=== PATIENT | female | born 1995 | race African-American/Black ===

== ENCOUNTER → 2018-12-22 | Outpatient (CLI) | payer OTHER ==
[2018-12-22 18:55] LABS: ALT 12 U/L (8-44); AST 23 U/L (13-35); African American GFR (CKD) 121.3 (60.0-200.0); Albumin/Globulin Ratio 1.83 (1.60-3.17); Alkaline Phosphatase 46 U/L (41-126); BUN/Creat Ratio 13.75 Ratio (12.00-20.00); Calcium 9.7 mg/dL (8.7-10.3); Chloride 108 mmol/L (96-109); Chol/HDL Ratio 1.96; Cholesterol 153 mg/dL (0-200); Globulin 2.4 g/dL (1.6-3.3); Glucose 79 mg/dL (70-110); Potassium 4.6 mmol/L (3.5-5.5); Sodium 144 mmol/L (135-145); Total Bilirubin 1.8 mg/dL (0.2-1.2); Total Protein 6.8 g/dL (6.2-8.2); Triglycerides <50.0 mg/dL (0.0-149.0)
== END | disposition home or self-care (01) ==
LOC: LABWHC1 13:17
DX: Z00.00 Encounter for general adult medical examination without abnormal findings (principal)
CPT/HCPCS: 36415; 80053; 80061; 84443

== ENCOUNTER 2022-02-05 01:31 | Emergency (ER) | payer OTHER ==
[2022-02-05] MEDS ORDERED: LIDOCAINE VISCOUS 2% 15 ML CUP MUCOUS MEM ONE (01:53)
[2022-02-05 01:54] VITALS: BP 107/77; PULSE 80; RESP 18; TEMP 98
[2022-02-05] MEDS ORDERED: HYDROcodone/APAP 5-325MG 1 EACH TAB PO STA (03:11)
[2022-02-05] MEDS ORDERED: ACET/COD 300 MG/30 MG STARTER PACK 6 TAB BTL PO STA (03:24)
--- NOTE | 2022-02-05 03:37 | ED ---
ENT HPI - General Chief complaint: ENT Stated complaint: tongue piercing injury Time Seen by Provider: 02/05/22 01:53 Source: patient, RN notes reviewed Mode of arrival: ambulatory Limitations: no limitations - History of Present Illness Initial comments: This is a 26-year-old female who presents to the emergency department for a tongue injury. She caught her tongue piercing on her braces, and felt a "ripping" sensation to the tongue. She is now having difficulty moving the tongue and opening her mouth due to the pain. Return precautions reviewed in depth, the patient is instructed to return to the emergency department with any new, worsening, or concerning symptoms. Patient verbalized understanding. This case was discussed in detail with the attending ED physician. Presentation, findings, and treatment plan discussed in detail as well. MD complaint: other (tongue pain) - Related Data Previous Rx's Medication Instructions Recorded lidocaine HCL [Lidocaine HCl 10 ml MM DIRECTED PRN #200 ml 02/05/22 Viscous] Allergies Allergy/AdvReac Type Severity Reaction Status Date / Time No Known Allergies Allergy Verified 02/05/22 01:53 Review of Systems ROS Statement: Those systems with pertinent positive or pertinent negative responses have been documented in the HPI. ROS Other: All systems not noted in ROS Statement are negative. Past Medical History Past Medical History: No Reported History History of Any Multi-Drug Resistant Organisms: None Reported Past Surgical History: No Surgical Hx Reported Past Psychological History: No Psychological Hx Reported Smoking Status: Never smoker Past Alcohol Use History: None Reported Past Drug Use History: None Reported General Exam General appearance: alert, in no apparent distress Head exam: Present: atraumatic, normocephalic, normal inspection ENT exam: Present: other (Open wound underneath the tongue at the base near the frenulum. There is no involvement of the piercing itself. The wound does not go through the entirety of the tongue.) Respiratory exam: Present: normal lung sounds bilaterally. Absent: respiratory distress, wheezes, rales, rhonchi, stridor Cardiovascular Exam: Present: regular rate, normal rhythm, normal heart sounds. Absent: systolic murmur, diastolic murmur, rubs, gallop, clicks Neurological exam: Present: alert, oriented X3, CN II-XII intact Psychiatric exam: Present: normal affect, normal mood Skin exam: Present: warm, dry, intact, normal color. Absent: rash Course Vital Signs 02/05/22 01:46 Temperature 98 F Pulse Rate 80 Respiratory 18 Rate Blood Pressure 107/77 O2 Sat by Pulse 100 Oximetry Medical Decision Making - Medical Decision Making This is a 26-year-old female who presents to the emergency department for a tongue injury. Because the injury is in the mucus membranes and it is not through and through, no repair with sutures is required. She was given viscous lidocaine for her pain and noted some improvement in symptoms. Rx for viscious lidocaine and Tylenol #3 starter pack provided with dosing instructions reviewed. Advised that the tylenol #3 can be sedating and should be taken very sparingly. She should otherwise take Ibuprofen and Tylenol. Return precautions reviewed in depth, the patient is instructed to return to the emergency department with any new, worsening, or concerning symptoms. Patient verbalized understanding. This case was discussed in detail with the attending ED physician. Presentation, findings, and treatment plan discussed in detail as well. Disposition Clinical Impression: Tongue injury Disposition: HOME SELF-CARE Additional Instructions: Return to the emergency department with any new, worsening, or concerning symptoms. Swish and spit with the lidocaine up to 8 times daily. Do not exceed 8 doses in 24 hours. Alternate with ibuprofen and Tylenol for additional relief. You can also try saltwater rinses. Limit your intake of acidic and spicy foods until this heals. Follow up with your primary care provider in 1-2 days. Prescriptions: lidocaine HCL [Lidocaine HCl Viscous] 10 ml MM DIRECTED PRN #200 ml PRN Reason: Pain Is patient prescribed a controlled substance at d/c from ED?: No Referrals: Mala Sargent DO [Primary Care Provider] - 1-2 days
== END 2022-02-05 03:55 | disposition home or self-care (01) ==
LOC: EC 01:31
DX: S09.93XA Unspecified injury of face, initial encounter (principal); W23.1XXA Caught, crushed, jammed, or pinched between stationary objects, initial encounter
CPT/HCPCS: 99283

== ENCOUNTER 2022-11-10 15:31 | Emergency (ER) | payer OTHER ==
--- NOTE | 2022-11-10 16:26 | ED ---
General Adult HPI - General Source: patient, RN notes reviewed, old records reviewed Mode of arrival: ambulatory Limitations: no limitations <Christian Vail - Last Filed: 11/10/22 20:16> <Christian Patrick - Last Filed: 11/11/22 18:44> - General Chief complaint: Psychiatric Symptoms Stated complaint: Mental health Time Seen by Provider: 11/10/22 15:40 - History of Present Illness Initial comments: This a 27 year old female who presents emergency Department stating she's been having some fleeting thoughts about suicide. Patient states she doesn't think she would never do it but she has had some thoughts. Patient states recently she had to go to senior living for having a registered handgun. Patient states that she also has been losing a lot of jobs recently because she has no motivation to get up and so she doesn't show fourth and eventually fire. Patient states she thinks maybe her depression is contributing to her lack of motivation and her inability to hold a job. (Christian Vail) - Related Data Home Medications Medication Instructions Recorded Confirmed No Known Home Medications 11/10/22 11/10/22 Allergies Allergy/AdvReac Type Severity Reaction Status Date / Time No Known Allergies Allergy Verified 11/10/22 21:50 Review of Systems ROS Other: All systems not noted in ROS Statement are negative. <Christian Vail - Last Filed: 11/10/22 20:16> ROS Other: All systems not noted in ROS Statement are negative. <Christian Patrick - Last Filed: 11/11/22 18:44> ROS Statement: Those systems with pertinent positive or pertinent negative responses have been documented in the HPI. Past Medical History Past Medical History: No Reported History History of Any Multi-Drug Resistant Organisms: None Reported Past Surgical History: No Surgical Hx Reported Past Psychological History: No Psychological Hx Reported Smoking Status: Vaper Past Alcohol Use History: None Reported Past Drug Use History: None Reported <Christian Vail - Last Filed: 11/10/22 20:16> General Exam Limitations: no limitations <Christian Vail - Last Filed: 11/10/22 20:16> General appearance: alert, in no apparent distress Head exam: Present: atraumatic, normocephalic, normal inspection Eye exam: Present: normal appearance, PERRL, EOMI. Absent: scleral icterus, conjunctival injection, periorbital swelling ENT exam: Present: normal exam, mucous membranes moist Neck exam: Present: normal inspection. Absent: tenderness, meningismus, lymphadenopathy Respiratory exam: Present: normal lung sounds bilaterally. Absent: respiratory distress, wheezes, rales, rhonchi, stridor Cardiovascular Exam: Present: regular rate, normal rhythm, normal heart sounds. Absent: systolic murmur, diastolic murmur, rubs, gallop, clicks GI/Abdominal exam: Present: soft, normal bowel sounds. Absent: distended, tenderness, guarding, rebound, rigid Extremities exam: Present: normal inspection, full ROM, normal capillary refill. Absent: tenderness, pedal edema, joint swelling, calf tenderness Back exam: Present: normal inspection Neurological exam: Present: alert, oriented X3, CN II-XII intact Psychiatric exam: Present: normal affect, normal mood Skin exam: Present: warm, dry, intact, normal color. Absent: rash <Christian Patrick - Last Filed: 11/11/22 18:44> - General Exam Comments Initial Comments: GENERAL: Patient is well-developed and well-nourished. Patient is nontoxic and well- hydrated and is in no acute distress. ENT: Neck is soft and supple. No significant lymphadenopathy is noted. Oropharynx is clear. Moist mucous membranes. Neck has full range of motion without eliciting any pain. EYES: The sclera were anicteric and conjunctiva were pink and moist. Extraocular movements were intact and pupils were equal round and reactive to light. Eyelids were unremarkable. PULMONARY: Unlabored respirations. Good breath sounds bilaterally. No audible rales rhonchi or wheezing was noted. CARDIOVASCULAR: There is a regular rate and rhythm without any murmurs gallops or rubs. ABDOMEN: Soft and nontender with normal bowel sounds. SKIN: Skin is clear with no lesions or rashes and otherwise unremarkable. NEUROLOGIC: Patient is alert and oriented x3. Cranial nerves II through XII are grossly intact. Motor and sensory are also intact. Normal speech, volume and content. Symmetrical smile. MUSCULOSKELETAL: Normal extremities with adequate strength and full range of motion. LYMPHATICS: No significant lymphadenopathy is noted PSYCHIATRIC: Patient states she's having lack of motivation. Patient states she has had fleeting thoughts of suicide (Christian Vail) Course <Christian Patrick - Last Filed: 11/11/22 18:44> Vital Signs 11/10/22 11/11/22 11/11/22 15:39 03:09 16:42 Temperature 98.3 F 98.5 F 97.9 F Pulse Rate 73 77 72 Respiratory 16 18 18 Rate Blood Pressure 125/80 98/57 100/68 O2 Sat by Pulse 94 L 90 L 100 Oximetry - Reevaluation(s) Reevaluation #1: 11/11/22 18:44 Medical records reviewed (Christian Patrick) Reevaluation #2: 11/11/22 18:44 Medical clear for psychiatric evaluation (Christian Patrick) Medical Decision Making <Christian Vail - Last Filed: 11/10/22 20:16> - Lab Data Result diagrams: 11/10/22 22:48 11/10/22 22:48 <Christian Patrick - Last Filed: 11/11/22 18:44> - Medical Decision Making Was pt. sent in by a medical professional or institution (, PA, VP SOFTWARE SUPPORT, urgent care, hospital, or longterm...) When possible be specific @ -Patient was sent in from senior living Did you speak to anyone other than the patient for history (EMS, parent, family, police, friend...)? What history was obtained from this source @ -[No] Did you review nursing and triage notes (agree or disagree)? Why? @ -[I reviewed and agree with nursing and triage notes] Were old charts reviewed (outside hosp., previous admission, EMS record, old EKG, old radiological studies, urgent care reports/EKG's, longterm records)? Report findings @ -[No old charts were reviewed] Differential Diagnosis (chest pain, altered mental status, abdominal pain women, abdominal pain men, vaginal bleeding, weakness, fever, dyspnea, syncope, headache, dizziness, GI bleed, back pain, seizure, CVA, palpatations, mental health, musculoskeletal)? @ -Differential Mental Health Depression, anxiety, bipolar, psychosis, schizophrenia, borderline personality, situational depression, adjustment disorder, behavioral disorder, brain tumor, malingering, substance abuse, encephalopathy, medication reaction, dementia, hypothyroidism, degenerative neurologic disorder, lupus.... This is not meant to be all-inclusive list EKG interpreted by me (3pts min.). @ -[As above] X-rays interpreted by me (1pt min.). @ -[None done] CT interpreted by me (1pt min.). @ -[None done] U/S interpreted by me (1pt. min.). @ -[None done] What testing was considered but not performed or refused? (CT, X-rays, U/S, labs)? Why? @ -[None] What meds were considered but not given or refused? Why? @ -[None] Did you discuss the management of the patient with other professionals (professionals i.e. DrMarbin, PA, VP SOFTWARE SUPPORT, lab, RT, psych nurse, social worker masters, ivory carver, teacher, community reinvestment act officer, case repairer)? Give summary @ -[No] Was smoking cessation discussed for >3mins.? @ -[No] Was critical care preformed (if so, how long)? @ -[No] Were there social determinants of health that impacted care today? How? (Homelessness, low income, unemployed, alcoholism, drug addiction, transportation, low edu. Level, literacy, decrease access to med. care, senior living, rehab)? @ -[No] Was there de-escalation of care discussed even if they declined (Discuss DNR or withdrawal of care, Hospice)? DNR status @ -[No] What co-morbidities impacted this encounter? (DM, HTN, Smoking, COPD, CAD, Cancer, CVA, ARF, Chemo, Hep., AIDS, mental health diagnosis, sleep apnea, morbid obesity)? @ -[None] Was patient admitted / discharged? Hospital course, mention meds given and route, prescriptions, significant lab abnormalities, going to OR and other pertinent info. @ -I cleared the patient medically for EPS to see. EPS states it won't be down to see the patient after 9:00. Patient will be taking care of at 9:[address] Scott (Christian Vail) 27 female will be transferred for inpatient psychiatric evaluation. Patient was seen at clinically certified by me for psychiatric inpatient evaluation and treatment (Christian Patrick) - Lab Data Lab Results 11/10/22 11/10/22 11/10/22 Range/Units 16:29 16:29 16:29 WBC (3.8-10.6) k/uL RBC (3.80-5.40) m/uL Hgb (11.4-16.0) gm/dL Hct (34.0-46.0) % MCV (80.0-100.0) fL MCH (25.0-35.0) pg MCHC (31.0-37.0) g/dL RDW (11.5-15.5) % Plt Count (150-450) k/uL MPV Neutrophils % % Lymphocytes % % Monocytes % % Eosinophils % % Basophils % % Neutrophils # (1.3-7.7) k/uL Lymphocytes # (1.0-4.8) k/uL Monocytes # (0-1.0) k/uL Eosinophils # (0-0.7) k/uL Basophils # (0-0.2) k/uL Sodium (137-145) mmol/L Potassium (3.5-5.1) mmol/L Chloride (98-107) mmol/L Carbon Dioxide (22-30) mmol/L Anion Gap mmol/L BUN (7-17) mg/dL Creatinine (0.52-1.04) mg/dL Est GFR (CKD-EPI)AfAm (>60 ml/min/1.73 sqM) Est GFR (CKD-EPI)NonAf (>60 ml/min/1.73 sqM) Glucose (74-99) mg/dL Calcium (8.4-10.2) mg/dL Total Bilirubin (0.2-1.3) mg/dL AST (14-36) U/L ALT (4-34) U/L Alkaline Phosphatase (38-126) U/L Total Protein (6.3-8.2) g/dL Albumin (3.5-5.0) g/dL Urine Color Yellow Urine Appearance Cloudy H (Clear) Urine pH 6.0 (5.0-8.0) Ur Specific [place] 1.018 (1.001-1.035) Urine Protein Trace H (Negative) Urine Glucose (UA) Negative (Negative) Urine Ketones Negative (Negative) Urine Blood Negative (Negative) Urine Nitrite Negative (Negative) Urine Bilirubin Negative (Negative) Urine Urobilinogen 2.0 (<2.0) mg/dL Ur Leukocyte Esterase Moderate H (Negative) Urine RBC 4 (0-5) /hpf Urine WBC 16 H (0-5) /hpf Ur Squamous Epith Cells 11 H (0-4) /hpf Calcium Oxalate Crystal Many H (None) /hpf Amorphous Sediment Occasional H (None) /hpf Urine Bacteria Few H (None) /hpf Hyaline Casts 23 H (0-2) /lpf Urine Mucus Many H (None) /hpf Urine HCG, Qual Not Detected (Not Detectd) Urine Opiates Screen Not Detected (NotDetected) Ur Oxycodone Screen Not Detected (NotDetected) Urine Methadone Screen Not Detected (NotDetected) Ur Propoxyphene Screen Not Detected (NotDetected) Ur Barbiturates Screen Not Detected (NotDetected) U Tricyclic Antidepress Not Detected (NotDetected) Ur Phencyclidine Scrn Not Detected (NotDetected) Ur Amphetamines Screen Not Detected (NotDetected) U Methamphetamines Scrn Not Detected (NotDetected) U Benzodiazepines Scrn Not Detected (NotDetected) Urine Cocaine Screen Not Detected (NotDetected) U Marijuana (THC) Screen Not Detected (NotDetected) Coronavirus (PCR) (Not Detectd) 11/10/22 11/10/22 11/10/22 Range/Units 22:48 22:48 22:48 WBC 4.6 (3.8-10.6) k/uL RBC 4.34 (3.80-5.40) m/uL Hgb 12.6 (11.4-16.0) gm/dL Hct 36.4 (34.0-46.0) % MCV 83.9 (80.0-100.0) fL MCH 29.1 (25.0-35.0) pg MCHC 34.7 (31.0-37.0) g/dL RDW 12.6 (11.5-15.5) % Plt Count 238 (150-450) k/uL MPV 8.6 Neutrophils % 41 % Lymphocytes % 48 % Monocytes % 7 % Eosinophils % 1 % Basophils % 0 % Neutrophils # 1.9 (1.3-7.7) k/uL Lymphocytes # 2.2 (1.0-4.8) k/uL Monocytes # 0.3 (0-1.0) k/uL Eosinophils # 0.1 (0-0.7) k/uL Basophils # 0.0 (0-0.2) k/uL Sodium 138 (137-145) mmol/L Potassium 4.3 (3.5-5.1) mmol/L Chloride 104 (98-107) mmol/L Carbon Dioxide 24 (22-30) mmol/L Anion Gap 10 mmol/L BUN 5 L (7-17) mg/dL Creatinine 0.67 (0.52-1.04) mg/dL Est GFR (CKD-EPI)AfAm >90 (>60 ml/min/1.73 sqM) Est GFR (CKD-EPI)NonAf >90 (>60 ml/min/1.73 sqM) Glucose 94 (74-99) mg/dL Calcium 9.9 (8.4-10.2) mg/dL Total Bilirubin 2.2 H (0.2-1.3) mg/dL AST 23 (14-36) U/L ALT 15 (4-34) U/L Alkaline Phosphatase 55 (38-126) U/L Total Protein 7.6 (6.3-8.2) g/dL Albumin 4.3 (3.5-5.0) g/dL Urine Color Urine Appearance (Clear) Urine pH (5.0-8.0) Ur Specific [place] (1.001-1.035) Urine Protein (Negative) Urine Glucose (UA) (Negative) Urine Ketones (Negative) Urine Blood (Negative) Urine Nitrite (Negative) Urine Bilirubin (Negative) Urine Urobilinogen (<2.0) mg/dL Ur Leukocyte Esterase (Negative) Urine RBC (0-5) /hpf Urine WBC (0-5) /hpf Ur Squamous Epith Cells (0-4) /hpf Calcium Oxalate Crystal (None) /hpf Amorphous Sediment (None) /hpf Urine Bacteria (None) /hpf Hyaline Casts (0-2) /lpf Urine Mucus (None) /hpf Urine HCG, Qual (Not Detectd) Urine Opiates Screen (NotDetected) Ur Oxycodone Screen (NotDetected) Urine Methadone Screen (NotDetected) Ur Propoxyphene Screen (NotDetected) Ur Barbiturates Screen (NotDetected) U Tricyclic Antidepress (NotDetected) Ur Phencyclidine Scrn (NotDetected) Ur Amphetamines Screen (NotDetected) U Methamphetamines Scrn (NotDetected) U Benzodiazepines Scrn (NotDetected) Urine Cocaine Screen (NotDetected) U Marijuana (THC) Screen (NotDetected) Coronavirus (PCR) Not Detected (Not Detectd) Disposition <Christian Vail - Last Filed: 11/10/22 20:16> Is patient prescribed a controlled substance at d/c from ED?: No <Christian Patrick - Last Filed: 11/11/22 18:44> Clinical Impression: Adjustment reaction of adult life, Acute anxiety, Depression, Suicidal ideation Disposition: TRANSFER TO PSYCH HOSP/UNIT Condition: Fair Referrals: Mega Coto MD [Primary Care Provider] - 1-2 days
[2022-11-10 16:57] LABS: Amphetamine Screen,Urine Not Detected (NotDetected); Barbiturate Screen,Urine Not Detected (NotDetected); Benzodiazepines Screen,Urine Not Detected (NotDetected); Cocaine Screen,Urine Not Detected (NotDetected); Methadone Screen, Urine Not Detected (NotDetected); Opiate Screen,Urine Not Detected (NotDetected); Oxycodone Screen, Urine Not Detected (NotDetected); Phencyclidine Screen,Urine Not Detected (NotDetected); Tricyclic Antidepressant,Urine Not Detected (NotDetected); Urn Cannabinoid Scrn Not Detected (NotDetected)
[2022-11-10 22:40] LABS: Amorphous Sediment,Urine Occasional /hpf; Appearance,Urine Cloudy (Clear); Bacteria,Urine Few /hpf; Bilirubin,Urine Negative (Negative); Blood,Urine Negative (Negative); Calcium Oxalate Crystals,Urine Many /hpf; Color,Urine Yellow; Glucose,Urine (UA) Negative (Negative); Hyaline Casts,Urine 23 /lpf (0-2); Ketones,Urine Negative (Negative); Leukocyte Esterase,Urine Moderate (Negative); Mucus,Urine Many /hpf; Nitrite,Urine Negative (Negative); Protein,Urine Trace (Negative); RBC,Urine 4 /hpf (0-5); Specific Gravity,Urine 1.018 (1.001-1.035); Squamous Epithelial Cell,Urine 11 /hpf (0-4); WBC,Urine 16 /hpf (0-5)
[2022-11-10 23:11] LABS: Basophils % (A) 0 %; Eosinophils # (A) 0.1 k/uL (0-0.7); Eosinophils % (A) 1 %; HCT 36.4 % (34.0-46.0); HGB 12.6 gm/dL (11.4-16.0); Lymphocytes # (A) 2.2 k/uL (1.0-4.8); Lymphocytes % (A) 48 %; MCH 29.1 pg (25.0-35.0); MCHC 34.7 g/dL (31.0-37.0); MCV 83.9 fL (80.0-100.0); Mean Platelet Volume 8.6; Monocytes # (A) 0.3 k/uL (0-1.0); Monocytes % (A) 7 %; Neutrophils # (A) 1.9 k/uL (1.3-7.7); Neutrophils % (A) 41 %; Platelet Count 238 k/uL (150-450); RBC 4.34 m/uL (3.80-5.40); RDW 12.6 % (11.5-15.5); WBC 4.6 k/uL (3.8-10.6)
[2022-11-10 23:25] LABS: ALT 15 U/L (4-34); AST 23 U/L (14-36); African American GFR (CKD) >90 (>60 ml/min/1.73 sqM); Albumin 4.3 g/dL (3.5-5.0); Alkaline Phosphatase 55 U/L (38-126); Anion Gap 10 mmol/L; Blood Urea Nitrogen 5 mg/dL (7-17); Calcium 9.9 mg/dL (8.4-10.2); Carbon Dioxide 24 mmol/L (22-30); Chloride 104 mmol/L (98-107); Glucose 94 mg/dL (74-99); Non-African American GFR(CKD) >90 (>60 ml/min/1.73 sqM); Potassium 4.3 mmol/L (3.5-5.1); Sodium 138 mmol/L (137-145); Total Bilirubin 2.2 mg/dL (0.2-1.3); Total Protein 7.6 g/dL (6.3-8.2)
[2022-11-11 06:11] VITALS: RESP 18
[2022-11-12 15:45] VITALS: BP 100/68; PULSE 72; TEMP 97.9
== END 2022-11-11 20:42 ==
LOC: EC 15:31
DX: F43.22 Adjustment disorder with anxiety (principal); F32.A Depression, unspecified; R45.851 Suicidal ideations; F17.290 Nicotine dependence, other tobacco product, uncomplicated; Z20.822 Contact with and (suspected) exposure to COVID-19
CPT/HCPCS: 36415; 80053; 80306; 81001; 81025; 82075; 85025; 87635; 99285

== ENCOUNTER → 2023-06-11 | Outpatient (CLI) | payer OTHER ==
[2023-06-11 18:31] LABS: HCT 35.6 % (37.2-46.3); HGB 12.4 g/dL (12.0-15.0); MCH 28.4 pg (27.0-32.0); MCHC 34.8 g/dL (32.0-37.0); MCV 81.7 FL (80.0-97.0); Mean Platelet Volume 12.2 FL (9.5-12.2); NRBC Per 100 WBC 0 X 10*3/uL (0.00-0.01); Platelet Count 244 X 10*3/uL (140-440); RBC 4.36 X 10*6/uL (4.10-5.20); RDW 13.3 % (11.5-14.5); WBC 4.78 X 10*3/uL (4.50-10.00)
[2023-06-11 18:47] LABS: ALT 9 U/L (8-44); AST 15 U/L (13-35); Albumin 4.5 g/dL (3.8-4.9); Albumin/Globulin Ratio 1.55 Ratio (1.60-3.17); Alkaline Phosphatase 40 U/L (41-126); BUN/Creat Ratio 17.71 Ratio (12.00-20.00); Blood Urea Nitrogen 12.4 mg/dL (9.0-27.0); Calcium 10.2 mg/dL (8.7-10.3); Carbon Dioxide 21.4 mmol/L (21.6-31.8); Chloride 106 mmol/L (96-109); Globulin 2.9 g/dL (1.6-3.3); Glucose 91 mg/dL (70-110); Potassium 4.4 mmol/L (3.5-5.5); Sodium 140 mmol/L (135-145); Total Protein 7.4 g/dL (6.2-8.2)
[2023-06-11 18:51] LABS: Hepatitis A Antibody IgM Nonreactive (Nonreactive); Hepatitis B Core IgM Nonreactive (Nonreactive); Hepatitis B Surface Antigen Nonreactive (Nonreactive); Hepatitis C IgG Antibody Nonreactive (Nonreactive)
[2023-06-11 20:21] LABS: HSV I IgG Interp POSITIVE; HSV II IgG Interp Negative (Negative)
[2023-06-11 21:08] LABS: HIV 2 AB Non-Reactive (Non-Reactive); HIV AB P24 Non-Reactive (Non-Reactive); HIV P24 AG Non-Reactive (Non-Reactive)
== END | disposition home or self-care (01) ==
LOC: LABWHC1 12:10
PROVIDERS: ATTEND Physician Assistant Medical
DX: Z30.41 Encounter for surveillance of contraceptive pills (principal); Z76.89 Persons encountering health services in other specified circumstances; N89.8 Other specified noninflammatory disorders of vagina; Z97.5 Presence of (intrauterine) contraceptive device
CPT/HCPCS: 36415; 80053; 80074; 85027; 86695; 86696; 86780; 87390

== ENCOUNTER 2023-11-04 23:56 | Emergency (ER) | payer OTHER ==
[2023-11-05 00:04] VITALS: RESP 18; TEMP 97.9
--- NOTE | 2023-11-05 00:22 | ED ---
Female Urogenital HPI - General Chief complaint: Urogenital Stated complaint: Vaginal Pain Time Seen by Provider: 11/05/23 00:06 Source: patient, RN notes reviewed Mode of arrival: ambulatory Limitations: no limitations - History of Present Illness Initial comments: This is a 28-year-old female who presents to the emergency department for pelvic pain. States that over the last week she has had burning with urination, pressure/fullness in her bladder and possible blood in her urine. Denies any vaginal bleeding. Reports a history of both UTIs and STIs and states that either one is possible. Denies any fevers/chills, nausea/vomiting, or pain in her back. MD Complaint: dysuria, pelvic pain - Related Data Previous Rx's Medication Instructions Recorded Phenazopyridine [Pyridium] 200 mg PO TID PRN #9 tablet 11/05/23 Sulfamethox-Tmp 800-160Mg [Bactrim 1 tab PO Q12HR 7 Days #14 tab 11/05/23 DS 800-160 mg] Allergies Allergy/AdvReac Type Severity Reaction Status Date / Time No Known Allergies Allergy Verified 11/10/22 21:50 Review of Systems ROS Statement: Those systems with pertinent positive or pertinent negative responses have been documented in the HPI. ROS Other: All systems not noted in ROS Statement are negative. Past Medical History Past Medical History: No Reported History History of Any Multi-Drug Resistant Organisms: None Reported Past Surgical History: No Surgical Hx Reported Past Psychological History: No Psychological Hx Reported Smoking Status: Vaper Past Alcohol Use History: Occasional Past Drug Use History: Marijuana General Exam Limitations: no limitations General appearance: alert, in no apparent distress Head exam: Present: atraumatic, normocephalic, normal inspection Respiratory exam: Present: normal lung sounds bilaterally. Absent: respiratory distress, wheezes, rales, rhonchi, stridor Cardiovascular Exam: Present: regular rate, normal rhythm, normal heart sounds. Absent: systolic murmur, diastolic murmur, rubs, gallop, clicks GI/Abdominal exam: Present: soft, normal bowel sounds. Absent: distended, tenderness, guarding, rebound, rigid Back exam: Absent: CVA tenderness (R), CVA tenderness (L) Neurological exam: Present: alert, oriented X3, CN II-XII intact Psychiatric exam: Present: normal affect, normal mood Skin exam: Present: warm, dry, intact, normal color. Absent: rash Course Vital Signs 11/05/23 11/05/23 00:01 03:33 Temperature 97.9 F Pulse Rate 98 85 Respiratory 18 18 Rate Blood Pressure 123/75 113/69 O2 Sat by Pulse 100 100 Oximetry Medical Decision Making - Medical Decision Making This is a 28 year old female who presents to the emergency department for urinary symptoms. Was pt. sent in by a medical professional or institution? @ -No Did you speak to anyone other than the patient for history? @ -No Did you review nursing and triage notes? @ -Yes, and I agree, it is accurate with regards to the patient's symptoms. Were old charts reviewed? @ -No Differential Diagnosis? @ -Differential Urinary Symptoms: UTI, STI, kidney stone, this is not meant to be an all-inclusive list. EKG interpreted by me (3pts min.)? @ -Not obtained X-rays interpreted by me (1pt min.)? @ -Not obtained CT interpreted by me (1pt min.)? @ -Not obtained U/S interpreted by me (1pt. min.)? @ -Not obtained What testing was considered but not performed? (CT, X-rays, U/S, labs)? Why? @ -None What meds were considered but not given? Why? @ -None Did you discuss the management of the patient with other professionals? @ -No Did you reconcile home meds? @ -No Was smoking cessation discussed for >3mins.? @ -No Was critical care preformed (if so, how long)? @ -No Were there social determinants of health that impacted care today? How? (Homelessness, low income, unemployed, alcoholism, drug addiction, transportation, low edu. Level, literacy, decrease access to med. care, shelter, rehab)? @ -No Was there de-escalation of care discussed even if they declined? (Discuss DNR or withdrawal of care, Hospice)? @ -No What co-morbidities impacted this encounter? (DM, HTN, Smoking, COPD, CAD, Cancer, CVA, Hep., AIDS, mental health diagnosis, sleep apnea, morbid obesity)? @ -None Was patient admitted / discharged? @ -Discharged. Urinalysis consistent with infection. Urine sent for culture. Gonorrhea and Chlamydia testing ordered with results pending at the time of discharge. 1 g of IM Rocephin administered. She was also given 2 g of Flagyl and 1 g of azithromycin in the event there was any STD exposure. A prescription for Bactrim was provided for the UTI. Pyridium prescribed for dysuria. Patient discharged home in stable condition. Case discussed with ED attending Dr. Patrick. Return precautions reviewed in depth, the patient is instructed to return to the emergency department with any new, worsening, or concerning symptoms. Patient verbalized understanding. Undiagnosed new problem with uncertain prognosis? @ -None Drug Therapy requiring intensive monitoring for toxicity (Heparin, Nitro, Insulin, Cardizem)? @ -None Were any procedures done? @ -None Diagnosis/symptom? @ -UTI, possible STI exposure Acute, or Chronic, or Acute on Chronic? @ -Acute Uncomplicated (without systemic symptoms) or Complicated (systemic symptoms)? @ -Uncomplicated Side effects of treatment? @ -None Exacerbation, Progression, or Severe Exacerbation] @ -Not applicable Poses a threat to life or bodily function? @ -No - Lab Data Lab Results 11/05/23 11/05/23 Range/Units 00:11 00:11 Urine Color Yellow Urine Appearance Turbid H (Clear) Urine pH 6.5 (5.0-8.0) Ur Specific [place] 1.021 (1.001-1.035) Urine Protein 3+ H (Negative) Urine Glucose (UA) Negative (Negative) Urine Ketones Negative (Negative) Urine Blood Large H (Negative) Urine Nitrite Negative (Negative) Urine Bilirubin Negative (Negative) Urine Urobilinogen 12.0 (<2.0) mg/dL Ur Leukocyte Esterase Large H (Negative) Urine RBC >182 H (0-5) /hpf Urine WBC >182 H (0-5) /hpf Urine WBC Clumps Many H (None) /hpf Urine Bacteria Few H (None) /hpf Urine Mucus Many H (None) /hpf Urine HCG, Qual Not Detected (Not Detectd) Disposition Clinical Impression: Urinary tract infection, Possible exposure to STI Disposition: HOME SELF-CARE Condition: Stable Instructions (If sedation given, give patient instructions): Urinary Tract Infection in Women (ED) Additional Instructions: Return to the emergency department with any new, worsening, or concerning symptoms. Take the antibiotic as prescribed for 7 days. You can take the Pyridium up to 3 times daily as needed for burning with urination. Be aware that this may turn your urine orange. Alternate with ibuprofen and Tylenol as needed for pain relief. Follow up with your primary care provider in 1-2 days. Prescriptions: Sulfamethox-Tmp 800-160Mg [Bactrim DS 800-160 mg] 1 tab PO Q12HR 7 Days #14 tab Phenazopyridine [Pyridium] 200 mg PO TID PRN #9 tablet PRN Reason: Pain Is patient prescribed a controlled substance at d/c from ED?: No Referrals: Nonstaff,Physician [Primary Care Provider] - 1-2 days Time of Disposition: 03:19
[2023-11-05] MEDS: IBUPROFEN 800 MG TAB PO STA (00:27)
[2023-11-05] MEDS: HYDROcodone/APAP 7.5-325MG 1 EACH TAB PO ONE (00:28)
[2023-11-05 03:07] LABS: Appearance,Urine Turbid (Clear); Bacteria,Urine Few /hpf; Bilirubin,Urine Negative (Negative); Blood,Urine Large (Negative); Color,Urine Yellow; Glucose,Urine (UA) Negative (Negative); Ketones,Urine Negative (Negative); Leukocyte Esterase,Urine Large (Negative); Mucus,Urine Many /hpf; Nitrite,Urine Negative (Negative); PH, Urine 6.5 (5.0-8.0); Protein,Urine 3+ (Negative); RBC,Urine >182 /hpf (0-5); Specific Gravity,Urine 1.021 (1.001-1.035); WBC,Urine >182 /hpf (0-5)
[2023-11-05] MEDS: metroNIDAZOLE 500 MG TAB PO STA (03:23)
[2023-11-05] MEDS: ACET/COD 300 MG/30 MG STARTER PACK 6 TAB BTL PO STA (03:24)
[2023-11-05] MEDS: cefTRIAXone 1,000 MG VIAL (IM USE) IM STA (03:24)
[2023-11-05] MEDS: AZITHROMYCIN 500 MG TAB PO STA (03:24)
[2023-11-05] MEDS: IBUPROFEN 600 MG STARTER PACK 4 TAB BTL PO STA (03:25)
[2023-11-05 03:35] VITALS: BP 113/69; PULSE 85
[2023-11-14 07:10] LABS: C. trachomatis,PCR Negative (Negative); N. gonorrhoeae,PCR Negative (Negative)
== END 2023-11-05 03:33 | disposition home or self-care (01) ==
LOC: EC 23:56
CPT/HCPCS: 81001; 81025; 87077; 87086; 87186; 87491; 87591; 96372; 99284

== ENCOUNTER 2024-04-17 15:38 | Emergency (ER) | payer OTHER ==
--- NOTE | 2024-04-17 16:26 | ED ---
Female Urogenital HPI - General Source: patient, RN notes reviewed Mode of arrival: ambulatory Limitations: no limitations <Terri Clemente - Last Filed: 04/17/24 16:25> <Walter Mckinnon - Last Filed: 04/18/24 23:11> - General Stated complaint: pain when urinating Time Seen by Provider: 04/17/24 16:25 - History of Present Illness Initial comments: Quick note: 28-year-old female presented to the ER for evaluation of dysuria. Patient noticed yesterday she started to have a pressure sensation with urinating. She is concerned she has another UTI. No back pain or fevers. (Terri Clemente) 28-year-old female presenting with chief complaint of dysuria. Patient states she has had dysuria and increased pressure with urinating for a few days but it got much worse last night. She is worried that she has a UTI. She is not having any flank pain, fever, nausea, vomiting, abdominal pain. (Josue Mckinnon) - Related Data Previous Rx's Medication Instructions Recorded Phenazopyridine [Pyridium] 200 mg PO TID PRN #9 tablet 11/05/23 Sulfamethox-Tmp 800-160Mg [Bactrim 1 tab PO Q12HR 7 Days #14 tab 11/05/23 DS 800-160 mg] Cephalexin [Keflex] 500 mg PO Q12HR 7 Days #14 cap 04/17/24 Allergies Allergy/AdvReac Type Severity Reaction Status Date / Time No Known Allergies Allergy Verified 04/17/24 16:38 Review of Systems ROS Other: All systems not noted in ROS Statement are negative. <Terri Clemente - Last Filed: 04/17/24 16:25> ROS Other: All systems not noted in ROS Statement are negative. <Walter Mckinnon - Last Filed: 04/18/24 23:11> ROS Statement: Those systems with pertinent positive or pertinent negative responses have been documented in the HPI. Past Medical History Past Medical History: No Reported History History of Any Multi-Drug Resistant Organisms: None Reported Past Surgical History: No Surgical Hx Reported Past Psychological History: No Psychological Hx Reported Smoking Status: Vaper Past Alcohol Use History: Occasional Past Drug Use History: Marijuana <Terri Clemente - Last Filed: 04/17/24 16:25> General Exam <Terri Clemente - Last Filed: 04/17/24 16:25> Limitations: no limitations General appearance: alert, in no apparent distress Head exam: Present: atraumatic, normocephalic, normal inspection Eye exam: Present: normal appearance, EOMI Neck exam: Present: normal inspection. Absent: meningismus Respiratory exam: Absent: respiratory distress Cardiovascular Exam: Present: regular rate GI/Abdominal exam: Absent: distended Neurological exam: Present: alert, oriented X3 Psychiatric exam: Present: normal affect, normal mood Skin exam: Present: warm, dry, normal color <Walter Mckinnon - Last Filed: 04/18/24 23:11> - General Exam Comments Initial Comments: Visual Physical Exam Vital signs reviewed General: Well-appearing, nontoxic, no acute distress. Head: Normocephalic, atraumatic Eyes: PERRLA, EOMI ENT: Airway patent Chest: Nonlabored breathing Skin: No visual rash, normal skin tone Neuro: Alert and oriented 3 Musculoskeletal: No gross abnormalities (Terri Clemente) Course Vital Signs 04/17/24 04/17/24 16:35 19:55 Temperature 98.0 F Pulse Rate 72 65 Respiratory 18 16 Rate Blood Pressure 108/75 116/79 O2 Sat by Pulse 100 100 Oximetry Medical Decision Making <Terri Clemente - Last Filed: 04/17/24 16:25> <Walter Mckinnon - Last Filed: 04/18/24 23:11> - Medical Decision Making I performed the quick note portion of this chart. Electronically signed by Terri Clemente PA-C (Terri Clemente) Was pt. sent in by a medical professional or institution ([facility], OLERICULTURIST, urgent care, hospital, or [place] [facility] care facility...) When possible be specific @ -No Did you speak to anyone other than the patient for history (EMS, parent, family, police, friend...)? What history was obtained from this source @ -No Did you review nursing and triage notes (agree or disagree)? Why? @ -I reviewed and agree with nursing and triage notes Were old charts reviewed (outside hosp., previous admission, EMS record, old EKG, old radiological studies, urgent care reports/EKG's, [place] health [facility] facility records)? Report findings @ -No old charts were reviewed Differential Diagnosis (chest pain, altered mental status, abdominal pain women, abdominal pain men, vaginal bleeding, weakness, fever, dyspnea, syncope, headache, dizziness, GI bleed, back pain, seizure, CVA, palpatations, mental health, musculoskeletal)? @ -Differential includes UTI, kidney stone, pyelonephritis, not an all- inclusive list EKG interpreted by me (3pts min.). @ -As above X-rays interpreted by me (1pt min.). @ -None done CT interpreted by me (1pt min.). @ -None done U/S interpreted by me (1pt. min.). @ -None done What testing was considered but not performed or refused? (CT, X-rays, U/S, labs)? Why? @ -None What meds were considered but not given or refused? Why? @ -None Did you discuss the management of the patient with other professionals (professionals i.e. , PA, OLERICULTURIST, lab, RT, psych nurse, rn social services, occupational health nurse supervisor, teacher, radiological defense officer, registered nurse hh case manager)? Give summary @ -No Was smoking cessation discussed for >3mins.? @ -No Was critical care preformed (if so, how long)? @ -No Were there social determinants of health that impacted care today? How? (Homelessness, low income, unemployed, alcoholism, drug addiction, transportation, low edu. Level, literacy, decrease access to med. care, snf, rehab)? @ -No Was there de-escalation of care discussed even if they declined (Discuss DNR or withdrawal of care, Hospice)? DNR status @ -No What co-morbidities impacted this encounter? (DM, HTN, Smoking, COPD, CAD, Cancer, CVA, ARF, Chemo, Hep., AIDS, mental health diagnosis, sleep apnea, morbid obesity)? @ -None Was patient admitted / discharged? Hospital course, mention meds given and route, prescriptions, significant lab abnormalities, going to OR and other pertinent info. @ -28-year-old female presenting with chief complaint of dysuria. Workup was initiated by triage. UA shows large leukocytes and moderate blood. Negative hCG. Patient is later evaluated by myself. She will be treated for UTI with Keflex. Follow-up with PCP. Report back to ER with any new or worsening symptoms. Discussed return parameters and answered all questions. Patient conveyed verbal understanding and agreed to the plan. I discussed this case in detail with my attending Dr. Camarena Undiagnosed new problem with uncertain prognosis? @ -No Drug Therapy requiring intensive monitoring for toxicity (Heparin, Nitro, Insulin, Cardizem)? @ -No Were any procedures done? @ -No Diagnosis/symptom? @ -UTI Acute, or Chronic, or Acute on Chronic? @ -Acute Uncomplicated (without systemic symptoms) or Complicated (systemic symptoms)? @ -Uncomplicated Side effects of treatment? @ -No Exacerbation, Progression, or Severe Exacerbation? @ -No Poses a threat to life or bodily function? How? (Chest pain, [place], [place], pneumonia, PE, COPD, DKA, ARF, appy, cholecystitis, CVA, Diverticulitis, Homicidal, Suicidal, threat to staff... and all critical care pts) @ -Low likelihood (Walter Mckinnon) - Lab Data Lab Results 04/17/24 04/17/24 Range/Units 17:53 17:53 Urine Color Yellow Urine Appearance Turbid H (Clear) Urine pH 7.0 (5.0-8.0) Ur Specific [place] 1.019 (1.001-1.035) Urine Protein 1+ H (Negative) Urine Glucose (UA) Negative (Negative) Urine Ketones Negative (Negative) Urine Blood Moderate H (Negative) Urine Nitrite Negative (Negative) Urine Bilirubin Negative (Negative) Urine Urobilinogen 2.0 (<2.0) mg/dL Ur Leukocyte Esterase Large H (Negative) Urine RBC >182 H (0-5) /hpf Urine WBC >182 H (0-5) /hpf Urine WBC Clumps Many H (None) /hpf Urine Mucus Few H (None) /hpf Urine HCG, Qual Not Detected (Not Detectd) Disposition <Terri Clemente - Last Filed: 04/17/24 16:25> Is patient prescribed a controlled substance at d/c from ED?: No Time of Disposition: 19:39 <Walter Mckinnon - Last Filed: 04/18/24 23:11> Clinical Impression: Urinary tract infection Disposition: HOME SELF-CARE Condition: Good Instructions (If sedation given, give patient instructions): Urinary Tract Infection in Women (ED) Additional Instructions: Follow-up with PCP. Report back to ER with any new or worsening symptoms. Prescriptions: Cephalexin [Keflex] 500 mg PO Q12HR 7 Days #14 cap Referrals: None,Stated [Primary Care Provider] - 1-2 days Forms: Area PCPs
[2024-04-17 16:38] VITALS: TEMP 98
[2024-04-17 18:20] LABS: Appearance,Urine Turbid (Clear); Bilirubin,Urine Negative (Negative); Blood,Urine Moderate (Negative); Color,Urine Yellow; Glucose,Urine (UA) Negative (Negative); Ketones,Urine Negative (Negative); Leukocyte Esterase,Urine Large (Negative); Mucus,Urine Few /hpf; Nitrite,Urine Negative (Negative); Protein,Urine 1+ (Negative); RBC,Urine >182 /hpf (0-5); Specific Gravity,Urine 1.019 (1.001-1.035); WBC,Urine >182 /hpf (0-5)
[2024-04-17] MEDS: CEPHALEXIN 500MG STARTER PACK 4 CAP BTL PO STA (19:55)
[2024-04-17 19:57] VITALS: BP 116/79; PULSE 65; RESP 16
== END 2024-04-17 19:58 | disposition home or self-care (01) ==
LOC: EC 15:38
DX: N39.0 Urinary tract infection, site not specified (principal); F17.290 Nicotine dependence, other tobacco product, uncomplicated
CPT/HCPCS: 81001; 81025; 87086; 99283